=== PATIENT | male | born 1950 | race Caucasian/White ===

== ENCOUNTER 2017-03-01 19:11 | Inpatient (IN) ==
--- NOTE | 2017-03-01 19:30 | Emergency Department Note ---
Disposition Clinical Impression: Diverticulitis Disposition: Admitted As Inpatient Condition: Good Referrals: NO,PCP [Primary Care Provider] - Forms: Work/School Release, ED Satisfaction Letter Abdominal Pain HPI - General Chief Complaint: ED Abdominal Pain Stated Complaint: diverticulitis with perf Time Seen by Provider: 03/01/17 19:14 Source: patient Nursing Notes Reviewed: Yes Vital Signs Reviewed: Yes - History of Present Illness Pain Scale: 0 - Related Data Allergies Allergy/AdvReac Type Severity Reaction Status Date / Time Penicillins [PCN] Allergy Itching Verified 03/01/17 19:23 All systems ED: reviewed and negative except as stated. Abdominal Pain PMH - Past Medical History Medical history: Reports: arthritis, GERD Male Surgical History: Reports: orthopedic, other Psychiatric history: Reports: no psych history - Social History Smoking status: Current every day smoker Alcohol use: Reports: occasionally Drug use: Reports: none Physical Exam - General Limitations: no limitations General appearance: alert, in no apparent distress - Head Head exam: atraumatic, normocephalic, normal inspection - Eye Eye exam: Present: normal appearance, PERRL, EOMI - ENT ENT exam: normal exam, normal oropharynx, mucous membranes moist - Neck Neck exam: Present: normal inspection, full ROM, trachea midline - Chest Chest inspection: Present: normal inspection, symmetric chest wall rise - Respiratory Respiratory exam: Present: normal lung sounds bilaterally - Cardiovascular Cardiovascular exam: Present: regular rate, normal rhythm, normal heart sounds - Abdominal Exam Abdominal exam: Present: soft, rebound. Absent: tenderness, distention, guarding, rigidity Abdominal tenderness: Present: LLQ - Extremities Exam Extremities exam: Present: normal inspection, full ROM. Absent: tenderness, pedal edema - Back Exam Back exam: Present: normal inspection, full ROM. Absent: tenderness - Neurological Exam Neurological exam: Present: alert, oriented X3 - Psychiatric Psychiatric exam: Present: normal affect, normal mood - Skin Skin exam: Present: warm, dry, intact, normal color Course Vital Signs Temperature 97.7 F 03/01/17 19:17 Pulse Rate 79 03/01/17 19:17 Respiratory Rate 16 03/01/17 19:17 Blood Pressure 148/92 03/01/17 19:17 O2 Sat by Pulse Oximetry 97 03/01/17 19:17 Temperature 97.7 F 03/01/17 19:17 Pulse Rate 79 03/01/17 19:17 Respiratory Rate 16 03/01/17 19:17 Blood Pressure 148/92 03/01/17 19:17 O2 Sat by Pulse Oximetry 97 03/01/17 19:17 Oxygen Delivery Oxygen Delivery Room Air Abdominal Pain - Differential Diagnosis Differential Diagnosis: Likely: abdominal pain non-specific, acute appendicitis , diverticulitis, gastroenteritis, ischemic bowel - Medical Records The patient medical reports from the . CBC shows a white cell count of 13.2, and hemoglobin of 13.7, hematocrit of 40.2, platelets of 271. Chemistry panel shows a sodium of 140, potassium of 4.0, chloride of 102, bicarbonate of 31, glucose of 103, BUN of 19, creatinine of 1.[address] scan was performed and was interpreted as sigmoid diverticulitis with associated microperforation.
[2017-03-01] MEDS ORDERED: *HR* HYDROmorphone (PF) 1 MG/ML SYRINGE IVP PRN (22:05)
[2017-03-01] MEDS ORDERED: Ondansetron 4 MG/2 ML VIAL IVP PRN (22:11)
[2017-03-01 22:27] LABS: Basophils # 0.1 K/mcL (0.0-0.2); Basophils % 0.7 %; Eosinophils # 0.5 K/mcL (0.0-0.6); Eosinophils % 3.9 %; Immature Granulocytes % 0.3 % (0-4); Lymphocytes # 2.3 K/mcL (0.6-4.6); Lymphocytes % 20.1 %; Mean Corpuscular HGB Conc 34.2 g/dL (31.6-35.5); Mean Corpuscular Hemoglobin 30.7 pg (28.0-33.3); Mean Corpuscular Volume 89.6 fL (83.0-100.0); Mean Platelet Volume 9.9 fL (9.4-12.4); Monocytes # 1.2 K/mcL (0.0-1.3); Monocytes % 10.2 %; Neutrophils # 7.5 K/mcL (1.6-8.9); Platelet Count 252 K/mcL (140-400); Red Blood Count 4.24 M/mcL (4.19-5.50); Red Cell Distribution Width 12.5 % (11.5-14.5); Segmented Neutrophils % 64.8 %
[2017-03-01] MEDS: 0.9 % Sodium Chloride 1,000 ML IVC SCH (22:42)
--- NOTE | 2017-03-02 07:38 | General Surg History&Physical ---
Date of Encounter: 03/02/17 Time of Encounter: 07:20 Assessment and Plan (1) Diverticulitis Current Visit: Yes Status: Acute The assessment and plan as outlined above was discussed with the patient and/or family members who expressed understanding and agreement. All questions were answered. The patient has clinical and CAT scan evidence of diverticulitis of the sigmoid colon. He has a penicillin allergy and will be treated with ciprofloxacin and Flagyl. Since his abdominal examination is relatively benign, I will go ahead and start clear liquids. I discussed the risks and benefits of treatment for diverticulitis and I suspect based on his clinical presentation CAT scan findings that he will respond quickly to intravenous antibiotics. Qualifiers: Diverticulitis site: large intestine Diverticulitis bleeding: without bleeding Diverticulitis complication: with perforation Qualified Code(s): K57.20 - Diverticulitis of large intestine with perforation and abscess without bleeding History of Present Illness Chief complaint: Abdominal pain HPI: Mr. Mendez is a 66 year old male Who is in reasonably good health who experienced abdominal pain for the last week. Pain is suprapubic and left lower quadrant. His pain was progressive. He denies shakes chills or fever. The pain was localized in the suprapubic and left lower quadrant area and associated with constipation. He sought evaluation in the emergency room at the [place]. CAT scan was obtained and demonstrated diverticulitis with microperforation. There is no evidence of abscess. The patient is transferred for further care. Today the patient states his pain is markedly improved but persistent in the left lower quadrant. He states he has not had a normal bowel movement in 3 days. He denies rectal bleeding. He denies previous episodes of left lower quadrant pain Past Med Surg Social Fam HX - Past Medical History Medical history: arthritis, GERD Psychiatric history: no psych history - Past Surgical History Surgical History: arthroscopy - Social History Smoking Status: Current every day smoker Packs per day: 1 Alcohol use: occasionally Drug use: none Medications and Allergies Cetirizine HCl [Zyrtec] 10 mg PO DAILY 03/01/17 [History] Gabapentin [Neurontin] 100 mg PO BID 03/01/17 [History] Naproxen [Naprosyn] 500 mg PO Q12H PRN 03/01/17 [History] Omeprazole [PriLOSEC] 20 mg PO DAILY 03/01/17 [History] SUMAtriptan [Imitrex] 50 mg PO AD PRN 03/01/17 [History] Sinus Rinse Neilmed Pkt 1 each NS AD PRN 03/01/17 [History] Tamsulosin [Flomax] 0.4 mg PO DAILY 03/01/17 [History] Allergies Penicillins [PCN] Allergy (Verified 03/01/17 19:23) Itching Review of Systems All systems PM: A 10-system review of systems was performed and is negative for pertinent findings except as documented above in the HPI. General Surgery Exam Initial Vital Signs Temp Pulse Resp BP Pulse Ox 97.7 F 79 16 148/92 97 03/01/17 19:17 03/01/17 19:17 03/01/17 19:17 03/01/17 19:17 03/01/17 19:17 - General physical appearance well developed, well nourished, no distress - Eyes PERRL, normal ocular movement - Respiratory normal expansion, normal respiratory effort, clear to percussion, clear to auscultation - Cardiovascular Cardiovascular exam: Present: RRR, no murmurs/rubs/gallops - Abdomen Abdominal Tenderness: Present: LLQ (Mild abdominal pain with no guarding, no rebound, and no evidence of peritonitis. He has mild tenderness to deep palpation. There are no masses in the abdomen) - Neurologic Present: CN 2-12 grossly intact, normal coordination, normal sensation - Psychiatric Psychiatric general surgery: Present: appropriate, oriented to person, oriented to place, oriented to time, speech is normal, memory intact Results - Labs 03/01/17 22:19 Abnormal lab results WBC 11.6 K/mcL (4.3-11.1) H 03/01/17 22:19 All other labs normal.
[2017-03-02] MEDS: Gabapentin 100 MG CAPSULE PO SCH ×2 (08:23→20:41)
[2017-03-02] MEDS: MetroNIDAZOLE 500 MG/100 ML 500 MG/100 ML BAG IVPB SCH ×2 (11:38→18:36)
[2017-03-02] MEDS: 0.9 % Sodium Chloride 1,000 ML IVC SCH (11:38)
[2017-03-02] MEDS ORDERED: SUMAtriptan succinate 50 MG TABLET PO PRN (15:05)
[2017-03-02] MEDS: *HR* Heparin 5,000 UNIT/ML VIAL SQ SCH (18:37)
[2017-03-03] MEDS: MetroNIDAZOLE 500 MG/100 ML 500 MG/100 ML BAG IVPB SCH ×2 (00:19→06:54)
[2017-03-03] MEDS: 0.9 % Sodium Chloride 1,000 ML IVC SCH (05:22)
[2017-03-03] MEDS: *HR* Heparin 5,000 UNIT/ML VIAL SQ SCH (05:27)
[2017-03-03 05:32] LABS: Hematocrit 35.9 % (37.5-50.1); Hemoglobin 12.1 g/dL (12.9-16.9); Mean Corpuscular HGB Conc 33.7 g/dL (31.6-35.5); Mean Corpuscular Hemoglobin 30.1 pg (28.0-33.3); Mean Corpuscular Volume 89.3 fL (83.0-100.0); Mean Platelet Volume 9.8 fL (9.4-12.4); Platelet Count 244 K/mcL (140-400); Red Blood Count 4.02 M/mcL (4.19-5.50); Red Cell Distribution Width 11.9 % (11.5-14.5)
[2017-03-03] MEDS: Gabapentin 100 MG CAPSULE PO SCH (09:10)
[2017-03-03 10:22] VITALS: BP 122/71
--- NOTE | 2017-03-03 12:00 | Discharge Summary ---
<Lizzeth Russo - Last Filed: 03/03/17 11:56> Date of Encounter: 03/03/17 Time of Encounter: 11:45 - Discharge Diagnosis (1) Diverticulitis Priority: Primary Status: Acute Qualifiers: Diverticulitis site: large intestine Diverticulitis bleeding: without bleeding Diverticulitis complication: with perforation Qualified Code(s): K57.20 - Diverticulitis of large intestine with perforation and abscess without bleeding - Discharge Medications Prescriptions: Ciprofloxacin HCl [Cipro] 500 mg PO BID #20 tablet MetroNIDAZOLE [Flagyl] 500 mg PO TID #30 tablet Home Medications: Cetirizine HCl [Zyrtec] 10 mg PO DAILY 03/01/17 [History] Gabapentin [Neurontin] 100 mg PO BID 03/01/17 [History] Naproxen [Naprosyn] 500 mg PO Q12H PRN 03/01/17 [History] Omeprazole [PriLOSEC] 20 mg PO DAILY 03/01/17 [History] SUMAtriptan [Imitrex] 50 mg PO AD PRN 03/01/17 [History] Sinus Rinse Neilmed Pkt 1 each NS AD PRN 03/01/17 [History] Tamsulosin [Flomax] 0.4 mg PO DAILY 03/01/17 [History] Ciprofloxacin HCl [Cipro] 500 mg PO BID #20 tablet 03/03/17 [Rx] MetroNIDAZOLE [Flagyl] 500 mg PO TID #30 tablet 03/03/17 [Rx] Allergies/Adverse Reactions: Allergies Penicillins [PCN] Allergy (Verified 03/01/17 19:23) Itching General Surgery Exam Initial Vital Signs Temp Pulse Resp BP Pulse Ox 97.7 F 79 16 148/92 97 03/01/17 19:17 03/01/17 19:17 03/01/17 19:17 03/01/17 19:17 03/01/17 19:17 - General physical appearance well developed, well nourished, no distress - Eyes PERRL, normal ocular movement - ENT normal mucosa, atraumatic, normocephalic - Neck trachea midline - Respiratory normal expansion, normal respiratory effort, clear to auscultation - Cardiovascular Cardiovascular exam: Present: RRR, 15, 16 - Abdomen Abdomen general surgery: Present: bowel sounds present, soft, non tender - Integumentary Integumentary general surgery: Present: warm and dry, no abnormal pigmentation - Neurologic Present: CN 2-12 grossly intact, normal coordination, normal sensation - Musculoskeletal Present: normal gait, normal posture - Psychiatric Psychiatric general surgery: Present: appropriate, oriented to person, oriented to place, oriented to time, speech is normal, memory intact Date of admission: 03/01/17 19:40 Primary care physician: [facility] Discharging clinician: Georges Godoy ([facility]) Anticipated date of discharge: 03/03/17 - Patient Status Disposition: Home, Self-Care Condition: Good Overall status at discharge: patient is back to baseline - Discharge Instructions Instructions: Diverticulitis (DC) Follow Up With: Georges Godoy MD [Partnered Physician] - 03/16/17 11:35 am (hospital follow-up) - Diet and Activity Activity: increase activity as tolerated Diet: other (Low fiber diet for the next 2 weeks and then advance to regular diet as tolerated) - Hospital Course Hospital course: Mr. Mendez is a 66 year old male presented to the hospital with acute onset of abdominal pain. He was found to have perforated diverticulitis and was treated with conservative measures incuding IV antibiotics and bowel rest. His abdominal pain resolved after 24 hours on IV antibitics. He is tolerating a low residue diet without nausea/vomiting. Vitals signs are stable and he is afebrile. Labs are stable. We will begin discharge planning and plan for outpatient follow-up in the next 10-14 days. Plan for interval colonoscopy in 6- 8 weeks. - Time Spent with Patient Total time spent providing and/or coordinating discharge services: Less than 30 minutes Labs on day of discharge: Labs from last 24 hours 03/03/17 05:20 WBC 8.8 RBC 4.02 L Hgb 12.1 L Hct 35.9 L MCV 89.3 MCH 30.1 MCHC 33.7 RDW 11.9 Plt Count 244 MPV 9.8 - Attending Attestation I examined this patient and my medical decision-making was reviewed with the SPED TEACHER/PA/Advanced Practice Nurse/Resident Physician. I agree with the documented findings, disposition and treatment plan as described except to the extent set forth below. <Georges Godoy - Last Filed: 03/04/17 15:54> Date of Encounter: 03/03/17 - Discharge Diagnosis (1) Diverticulitis Status: Acute Qualifiers: Diverticulitis site: large intestine Diverticulitis bleeding: without bleeding Diverticulitis complication: with perforation Qualified Code(s): K57.20 - Diverticulitis of large intestine with perforation and abscess without bleeding General Surgery Exam Initial Vital Signs Temp Pulse Resp BP Pulse Ox 97.7 F 79 16 148/92 97 03/01/17 19:17 03/01/17 19:17 03/01/17 19:17 03/01/17 19:17 03/01/17 19:17 Date of admission: 03/01/17 19:40 Primary care physician: PCP [facility] - Hospital Course Hospital course: Mr. Mendez is a 66 year old male - Time Spent with Patient Total time spent providing and/or coordinating discharge services: - Attending Attestation The patient is seen and evaluated the liver. He is pain-free. He will be transitioned to oral antibiotics. He will be given a regular diet. If he tolerates this and remains afebrile and pain-free he discharged home this afternoon Georges Godoy MD FAC
== END 2017-03-03 14:13 | disposition home or self-care (01) | DRG 392 ==
LOC: EMEROO 19:11 → 3ANU 19:40
PROVIDERS: ADMIT Surgery; ATTEND Surgery

== ENCOUNTER 2020-05-06 13:35 | Inpatient (IN) ==
[2020-05-06] MEDS ORDERED: Ondansetron ODT 4 MG TAB.RAPDIS SL PRN (16:54)
[2020-05-06] MEDS ORDERED: Naloxone 0.4 MG/ML INJ IVP PRN (16:54)
[2020-05-06] MEDS ORDERED: SUMAtriptan succinate 50 MG TABLET PO PRN (16:59)
[2020-05-06] MEDS ORDERED: Isovue-370 500 ML BOTTLE IVP ONE (17:05)
[2020-05-06] MEDS: 0.9 % Sodium Chloride w KCl 20 MEQ/1,000 ML MLS IVC SCH (18:09)
[2020-05-06] MEDS ORDERED: Acetaminophen 325 MG TABLET PO PRN (18:21)
[2020-05-06 18:28] LABS: Basophils # 0.1 K/mcL (0.0-0.2); Eosinophils # 0.2 K/mcL (0.0-0.6); Eosinophils % 1.9 %; Hematocrit 40.7 % (37.5-50.1); Hemoglobin 13.2 g/dL (12.9-16.9); Immature Granulocytes % 0.3 % (0-4); Lymphocytes # 2.7 K/mcL (0.6-4.6); Lymphocytes % 28.6 %; Mean Corpuscular HGB Conc 32.4 g/dL (31.6-35.5); Mean Corpuscular Hemoglobin 30.4 pg (28.0-33.3); Mean Corpuscular Volume 93.8 fL (83.0-100.0); Mean Platelet Volume 9.9 fL (9.4-12.4); Monocytes # 0.7 K/mcL (0.0-1.3); Monocytes % 7.6 %; Neutrophils # 5.8 K/mcL (1.6-8.9); Platelet Count 318 K/mcL (140-400); Red Blood Count 4.34 M/mcL (4.19-5.50); Red Cell Distribution Width 12.4 % (11.5-14.5); Segmented Neutrophils % 60.6 %; White Blood Count 9.6 K/mcL (4.3-11.1)
[2020-05-06 18:29] LABS: INR 1.1; Prothrombin Time 12.9 Seconds (9.4-12.1)
[2020-05-06 18:40] LABS: Phosphorous 2.5 mg/dL (2.7-4.5)
[2020-05-06 18:41] LABS: BUN/Creatinine Ratio 17 (6-26); Blood Urea Nitrogen 18 mg/dL (8-23); Calcium 9.6 mg/dL (8.6-10.3); Carbon Dioxide 26 mEq/L (23-29); Chloride 104 mEq/L (98-107); Glucose 90 mg/dL (70-105); Osmolality,Calculated 285 (280-300); Potassium 4.1 mEq/L (3.5-5.1); Sodium 137 mEq/L (136-145); eGFR For African Americans > 60 (> 60); eGFR For Non-African Americans > 60 (> 60)
[2020-05-06] MEDS: Gabapentin 100 MG CAPSULE PO SCH (21:41)
[2020-05-06] MEDS: MetroNIDAZOLE 500 MG/100 ML 500 MG/100 ML BAG IVPB SCH (23:16)
[2020-05-07] MEDS ORDERED: Piperacillin/Tazobactam 3.375 GM in D5% in Water (Mini-Bag+) 100 ML IVPB SCH
[2020-05-07] MEDS: *HR* Heparin 5,000 UNIT/ML VIAL SQ SCH ×2 (05:33→18:12)
[2020-05-07] MEDS: 0.9 % Sodium Chloride w KCl 20 MEQ/1,000 ML MLS IVC SCH (05:34)
[2020-05-07 06:23] LABS: Basophils # 0.1 K/mcL (0.0-0.2); Basophils % 1.2 %; Eosinophils # 0.2 K/mcL (0.0-0.6); Eosinophils % 2.3 %; Hematocrit 37.3 % (37.5-50.1); Hemoglobin 12.1 g/dL (12.9-16.9); Immature Granulocytes % 0.5 % (0-4); Lymphocytes # 2.5 K/mcL (0.6-4.6); Mean Corpuscular HGB Conc 32.4 g/dL (31.6-35.5); Mean Corpuscular Hemoglobin 30.2 pg (28.0-33.3); Mean Platelet Volume 9.8 fL (9.4-12.4); Monocytes # 0.8 K/mcL (0.0-1.3); Monocytes % 10.3 %; Neutrophils # 3.8 K/mcL (1.6-8.9); Platelet Count 267 K/mcL (140-400); Red Blood Count 4.01 M/mcL (4.19-5.50); Red Cell Distribution Width 12.5 % (11.5-14.5); Segmented Neutrophils % 51.7 %; White Blood Count 7.4 K/mcL (4.3-11.1)
[2020-05-07 06:34] LABS: BUN/Creatinine Ratio 18 (6-26); Blood Urea Nitrogen 15 mg/dL (8-23); Calcium 9.1 mg/dL (8.6-10.3); Carbon Dioxide 25 mEq/L (23-29); Chloride 107 mEq/L (98-107); Glucose 93 mg/dL (70-105); Magnesium 1.9 mg/dL (1.6-2.6); Osmolality,Calculated 285 (280-300); Phosphorous 2.2 mg/dL (2.7-4.5); Potassium 4.2 mEq/L (3.5-5.1); Sodium 137 mEq/L (136-145); eGFR For African Americans > 60 (> 60); eGFR For Non-African Americans > 60 (> 60)
[2020-05-07] MEDS: Loratadine 10 MG TABLET PO SCH (08:20)
[2020-05-07] MEDS: Gabapentin 100 MG CAPSULE PO SCH ×2 (08:20→19:55)
[2020-05-07] MEDS: MetroNIDAZOLE 500 MG/100 ML 500 MG/100 ML BAG IVPB SCH ×3 (08:21→23:32)
[2020-05-07] MEDS ORDERED: *HR* Enoxaparin 40 MG/0.4 ML SYRINGE SQ SCH (08:34)
[2020-05-07] MEDS ORDERED: Ipratropium/Albuterol Neb 3 ML IH PRN (08:40)
[2020-05-07] MEDS: lisinopriL 10 MG TABLET PO SCH (08:50)
[2020-05-07] MEDS: Cholecalciferol (D-3) 1,000 UNIT (25MCG) TABLET PO SCH (08:50)
[2020-05-07] MEDS ORDERED: NON-FORMULARY MEDICATION 1 EACH EACH (Pantoprazole Sodium [Protonix] 40 MG) PO SCH (09:00)
[2020-05-07] MEDS: Budesonide/Formoterol 80/4.5 1 PUFF INH IH SCH ×2 (11:12→22:12)
[2020-05-08] MEDS: *HR* Heparin 5,000 UNIT/ML VIAL SQ SCH ×2 (05:38→17:35)
[2020-05-08 08:26] LABS: Hematocrit 39.4 % (37.5-50.1); Hemoglobin 13.1 g/dL (12.9-16.9); Mean Corpuscular HGB Conc 33.2 g/dL (31.6-35.5); Mean Corpuscular Hemoglobin 30.5 pg (28.0-33.3); Mean Corpuscular Volume 91.6 fL (83.0-100.0); Mean Platelet Volume 9.2 fL (9.4-12.4); Platelet Count 261 K/mcL (140-400); Red Cell Distribution Width 12.3 % (11.5-14.5); White Blood Count 6.4 K/mcL (4.3-11.1)
[2020-05-08] MEDS: Loratadine 10 MG TABLET PO SCH (08:33)
[2020-05-08] MEDS: Gabapentin 100 MG CAPSULE PO SCH ×2 (08:33→21:46)
[2020-05-08] MEDS: lisinopriL 10 MG TABLET PO SCH (08:33)
[2020-05-08] MEDS: MetroNIDAZOLE 500 MG/100 ML 500 MG/100 ML BAG IVPB SCH ×2 (08:34→16:22)
[2020-05-08] MEDS: Cholecalciferol (D-3) 1,000 UNIT (25MCG) TABLET PO SCH (08:34)
[2020-05-08] MEDS: Budesonide/Formoterol 80/4.5 1 PUFF INH IH SCH ×2 (11:10→20:30)
[2020-05-08] MEDS ORDERED: 0.9 % Sodium Chloride 1,000 ML IVC SCH (12:00)
[2020-05-08] MEDS ORDERED: 0.9 % Sodium Chloride 1,000 ML ONE (12:05)
[2020-05-09] MEDS: MetroNIDAZOLE 500 MG/100 ML 500 MG/100 ML BAG IVPB SCH ×3 (00:04→18:55)
[2020-05-09] MEDS: *HR* Heparin 5,000 UNIT/ML VIAL SQ SCH ×2 (05:55→17:31)
[2020-05-09 06:55] LABS: Mean Corpuscular HGB Conc 33.3 g/dL (31.6-35.5); Mean Corpuscular Hemoglobin 30.7 pg (28.0-33.3); Mean Platelet Volume 9.6 fL (9.4-12.4); Platelet Count 269 K/mcL (140-400); Red Blood Count 4.24 M/mcL (4.19-5.50); Red Cell Distribution Width 12.3 % (11.5-14.5); White Blood Count 6.4 K/mcL (4.3-11.1)
[2020-05-09 07:16] LABS: BUN/Creatinine Ratio 11 (6-26); Blood Urea Nitrogen 11 mg/dL (8-23); Calcium 8.8 mg/dL (8.6-10.3); Carbon Dioxide 23 mEq/L (23-29); Chloride 106 mEq/L (98-107); Glucose 125 mg/dL (70-105); Osmolality,Calculated 283 (280-300); Potassium 3.6 mEq/L (3.5-5.1); Sodium 136 mEq/L (136-145); eGFR For African Americans > 60 (> 60); eGFR For Non-African Americans > 60 (> 60)
[2020-05-09] MEDS: Budesonide/Formoterol 80/4.5 1 PUFF INH IH SCH ×2 (08:40→19:53)
[2020-05-09] MEDS: Loratadine 10 MG TABLET PO SCH (09:22)
[2020-05-09] MEDS: lisinopriL 10 MG TABLET PO SCH (09:22)
[2020-05-09] MEDS: Gabapentin 100 MG CAPSULE PO SCH ×2 (09:22→21:16)
[2020-05-09] MEDS: Cholecalciferol (D-3) 1,000 UNIT (25MCG) TABLET PO SCH (09:23)
[2020-05-09] MEDS ORDERED: cefOXitin 1,000 MG, Sodium Chloride IRRigation 1,000 ML IR ONE (12:30)
[2020-05-09] MEDS ORDERED: Ondansetron 4 MG/2 ML VIAL IVP ONE (12:33)
[2020-05-09] MEDS ORDERED: *HR* Promethazine 25 MG/ML VIAL IVP PRN (12:33)
[2020-05-09] MEDS ORDERED: *HR* OxyCODONE Immed Rel 5 MG TABLET PO PRN (12:33)
[2020-05-09] MEDS ORDERED: *HR* HYDROmorphone PF 0.5 MG/0.5 ML SYRINGE IVP PRN (12:33)
[2020-05-09] MEDS ORDERED: Acetaminophen IV 1,000 MG/100 ML INFUS..BTL ONE (12:38)
[2020-05-09] MEDS ORDERED: *HR* Succinylcholine 200 MG/10 ML VIAL IVP ONE (12:41)
[2020-05-09] MEDS ORDERED: *HR* Rocuronium Bromide 50 MG/5 ML VIAL ONE ×2 (12:41→14:32)
[2020-05-09] MEDS ORDERED: Lidocaine -MPF 4% 5 ML AMPUL ONE (12:41)
[2020-05-09] MEDS ORDERED: Lidocaine -MPF 2% 2 ML VIAL ONE (12:41)
[2020-05-09] MEDS ORDERED: *HR* FentaNYL (PF) 100 MCG/2 ML VIAL ONE (12:42)
[2020-05-09] MEDS ORDERED: *HR* Propofol 200 MG/20 ML VIAL IVP ONE (12:42)
[2020-05-09] MEDS ORDERED: Ropivacaine/PF 0.5% 30 ML VIAL ONE (13:00)
[2020-05-09] MEDS ORDERED: EPHEDrine 50 MG/ML VIAL ONE (13:19)
[2020-05-09] MEDS ORDERED: Ondansetron 4 MG/2 ML VIAL ONE (13:44)
[2020-05-09] MEDS ORDERED: Dexamethasone 4 MG/ML VIAL ONE (13:44)
[2020-05-09] MEDS: Morphine Sulfate 2 MG/ML SYRINGE IVP PRN ×3 (15:57→16:16)
[2020-05-09] MEDS ORDERED: SUMAtriptan succinate 50 MG TABLET PO PRN (17:17)
[2020-05-09] MEDS ORDERED: Ondansetron ODT 4 MG TAB.RAPDIS SL PRN (17:17)
[2020-05-09] MEDS ORDERED: Naloxone 0.4 MG/ML INJ IVP PRN (17:17)
[2020-05-09] MEDS: D5% in 0.45% NACL w KCl 20 MEQ/1,000 ML MLS IVC SCH (17:32)
[2020-05-09] MEDS ORDERED: Ibuprofen 600 MG TABLET PO SCH (21:00)
[2020-05-09] MEDS: Acetaminophen 325 MG TABLET PO SCH (21:17)
[2020-05-10] MEDS: MetroNIDAZOLE 500 MG/100 ML 500 MG/100 ML BAG IVPB SCH ×3 (00:02→09:00)
[2020-05-10] MEDS: D5% in 0.45% NACL w KCl 20 MEQ/1,000 ML MLS IVC SCH ×2 (02:27→12:07)
[2020-05-10] MEDS ORDERED: Ibuprofen 600 MG TABLET PO SCH (03:00)
[2020-05-10] MEDS: *HR* Heparin 5,000 UNIT/ML VIAL SQ SCH ×2 (05:21→17:30)
[2020-05-10] MEDS: *HR* OxyCODONE Immed Rel 5 MG TABLET PO PRN ×2 (05:30→17:29)
[2020-05-10] MEDS: Cholecalciferol (D-3) 1,000 UNIT (25MCG) TABLET PO SCH (08:05)
[2020-05-10] MEDS: Gabapentin 100 MG CAPSULE PO SCH ×2 (08:05→20:12)
[2020-05-10] MEDS: Acetaminophen 325 MG TABLET PO SCH ×2 (08:05→20:13)
[2020-05-10] MEDS: lisinopriL 10 MG TABLET PO SCH (08:06)
[2020-05-10] MEDS: Loratadine 10 MG TABLET PO SCH (08:06)
[2020-05-10 08:19] LABS: Basophils % 0.1 %; Eosinophils % 0.1 %; Hematocrit 35.2 % (37.5-50.1); Hemoglobin 11.7 g/dL (12.9-16.9); Immature Granulocytes % 0.5 % (0-4); Lymphocytes # 1.5 K/mcL (0.6-4.6); Lymphocytes % 12.5 %; Mean Corpuscular HGB Conc 33.2 g/dL (31.6-35.5); Mean Corpuscular Hemoglobin 30.7 pg (28.0-33.3); Mean Corpuscular Volume 92.4 fL (83.0-100.0); Mean Platelet Volume 9.9 fL (9.4-12.4); Platelet Count 223 K/mcL (140-400); Red Blood Count 3.81 M/mcL (4.19-5.50); Red Cell Distribution Width 12.3 % (11.5-14.5); Segmented Neutrophils % 78.8 %
[2020-05-10 08:29] LABS: Neutrophils # 9.5 K/mcL (1.6-8.9); White Blood Count 12.1 K/mcL (4.3-11.1)
[2020-05-10 08:42] LABS: BUN/Creatinine Ratio 11 (6-26); Blood Urea Nitrogen 10 mg/dL (8-23); Calcium 8.4 mg/dL (8.6-10.3); Carbon Dioxide 25 mEq/L (23-29); Chloride 106 mEq/L (98-107); Glucose 138 mg/dL (70-105); Magnesium 1.8 mg/dL (1.6-2.6); Osmolality,Calculated 283 (280-300); Phosphorous 2.2 mg/dL (2.7-4.5); Potassium 3.9 mEq/L (3.5-5.1); Sodium 136 mEq/L (136-145); eGFR For African Americans > 60 (> 60); eGFR For Non-African Americans > 60 (> 60)
[2020-05-10] MEDS ORDERED: Sodium Phosphate 30 MMOL in 0.9 % Sodium Chloride 100 ML IVPB ONE (09:17)
[2020-05-10] MEDS: Budesonide/Formoterol 80/4.5 1 PUFF INH IH SCH ×2 (10:30→20:21)
[2020-05-10] MEDS: Ibuprofen 800 MG TABLET PO SCH (14:58)
[2020-05-11] MEDS: Ibuprofen 800 MG TABLET PO SCH ×3 (00:04→16:06)
[2020-05-11] MEDS: *HR* OxyCODONE Immed Rel 5 MG TABLET PO PRN ×2 (04:08→10:08)
[2020-05-11] MEDS: *HR* Heparin 5,000 UNIT/ML VIAL SQ SCH ×2 (05:26→18:26)
[2020-05-11] MEDS: Budesonide/Formoterol 80/4.5 1 PUFF INH IH SCH ×2 (07:53→19:58)
[2020-05-11] MEDS: Loratadine 10 MG TABLET PO SCH (09:22)
[2020-05-11] MEDS: Gabapentin 100 MG CAPSULE PO SCH ×2 (09:22→20:48)
[2020-05-11] MEDS: lisinopriL 10 MG TABLET PO SCH (09:22)
[2020-05-11] MEDS: Acetaminophen 325 MG TABLET PO SCH ×2 (09:23→20:48)
[2020-05-11] MEDS: Cholecalciferol (D-3) 1,000 UNIT (25MCG) TABLET PO SCH (09:27)
[2020-05-12] MEDS: Ibuprofen 800 MG TABLET PO SCH ×2 (00:41→08:42)
[2020-05-12] MEDS: *HR* Heparin 5,000 UNIT/ML VIAL SQ SCH (05:54)
[2020-05-12 06:50] VITALS: BP 107/63
[2020-05-12] MEDS: Budesonide/Formoterol 80/4.5 1 PUFF INH IH SCH (07:44)
[2020-05-12] MEDS: Ipratropium/Albuterol Neb 3 ML IH PRN ×2 (07:48→11:03)
[2020-05-12] MEDS: Gabapentin 100 MG CAPSULE PO SCH (08:42)
[2020-05-12] MEDS: lisinopriL 10 MG TABLET PO SCH (08:42)
[2020-05-12] MEDS: Acetaminophen 325 MG TABLET PO SCH (08:42)
[2020-05-12] MEDS: Cholecalciferol (D-3) 1,000 UNIT (25MCG) TABLET PO SCH (08:43)
[2020-05-12] MEDS: Loratadine 10 MG TABLET PO SCH (08:43)
[2020-05-12 08:44] LABS: Basophils # 0.1 K/mcL (0.0-0.2); Basophils % 0.6 %; Eosinophils # 0.3 K/mcL (0.0-0.6); Eosinophils % 3.3 %; Hematocrit 35.7 % (37.5-50.1); Hemoglobin 11.8 g/dL (12.9-16.9); Immature Granulocytes % 0.4 % (0-4); Lymphocytes # 1.3 K/mcL (0.6-4.6); Mean Corpuscular HGB Conc 33.1 g/dL (31.6-35.5); Mean Corpuscular Hemoglobin 30.6 pg (28.0-33.3); Mean Corpuscular Volume 92.7 fL (83.0-100.0); Mean Platelet Volume 9.7 fL (9.4-12.4); Monocytes # 0.7 K/mcL (0.0-1.3); Monocytes % 8.8 %; Platelet Count 191 K/mcL (140-400); Red Blood Count 3.85 M/mcL (4.19-5.50); Red Cell Distribution Width 12.9 % (11.5-14.5); Segmented Neutrophils % 71.9 %; White Blood Count 8.4 K/mcL (4.3-11.1)
== END 2020-05-12 14:11 | disposition home or self-care (01) | DRG 331 ==
LOC: 3BNU → 3ANU 05-08 19:19
PROVIDERS: ADMIT Surgery; ATTEND Surgery